=== PATIENT | female | born 1975 | race Caucasian/White ===

== ENCOUNTER 2021-09-20 09:43 | Emergency (ER) | payer BC, SELFPAY ==
[~2021-09-20] VITALS: Ht 162.6 cm; Wt 90.7 kg
[2021-09-20 10:05] VITALS: BP_SYST 136
--- NOTE | 2021-09-20 10:05 | NUR ---
Pt to remain in the er tent for evaluation. No er beds available. V/S stable.
--- NOTE | 2021-09-20 10:08 | NUR ---
Pt AAO and ambulatory reporting worsening Covid symptoms. Pt reports thart she was diagnosed 5 days ago. Pt denies pain and V/S are stable.
--- NOTE | 2021-09-20 10:10 | NUR ---
Dr. Astudillo to tent to evaluate pt status.
[2021-09-20] MEDS ORDERED: PHEN-649 PO (10:32)
[2021-09-20 10:50] VITALS: BP_SYST 136
--- NOTE | 2021-09-20 10:50 | NUR ---
Patient given written and verbal discharge instructions and verbalizes understanding. Dr. Baudilio HERNANDEZ MD discussed with patient the results and treatment provided. Patient in stable condition. ID arm band removed. Patient educated on pain management and to follow up with PMD. Pain Scale 0/10. Opportunity for questions provided and answered. Medication side effect fact sheet provided.
== END 2021-09-20 10:50 | disposition home or self-care (01) ==
LOC: SED 09:43
DX: U07.1 COVID-19 (principal); R06.02 Shortness of breath; Z88.1 Allergy status to other antibiotic agents; Z79.899 Other long term (current) drug therapy
CPT/HCPCS: 99281

== ENCOUNTER 2021-09-28 10:31 | Emergency (ER) | payer BC, SELFPAY ==
[~2021-09-28] VITALS: Ht 162.6 cm; Wt 70.3 kg
[~2021-09-28 10:31] MED LIST: PHEN-649 PO
[2021-09-28 11:35] VITALS: BP_SYST 128
--- NOTE | 2021-09-28 11:41 | NUR ---
triaged in tent
[2021-09-28 12:14] LABS: BASOPHILS % (AUTO) 0.2 % (0.0-2.0); EOSINOPHILS # (AUTO) 0.1 K/uL (0.0-0.4); EOSINOPHILS % (AUTO) 1.1 % (0.0-4.0); HEMATOCRIT 41.4 % (36-48); HEMOGLOBIN 13.7 g/dL (12.0-16.0); LYMPHOCYTES % (AUTO) 21.7 % (20.5-51.5); MEAN CORPUSCULAR HEMOGLOBIN 28 pg (27-31); MEAN CORPUSCULAR HGB CONC 33 % (32-36); MEAN CORPUSCULAR VOLUME 84 fL (79.0-98.0); MONOCYTES # (AUTO) 0.6 K/uL (0.0-1.0); MONOCYTES % (AUTO) 6.1 % (1.7-9.3); NEUTROPHILS # (AUTO) 6.6 K/uL (1.8-7.7); NEUTROPHILS % (AUTO) 70.9 % (40.0-70.0); PLATELET COUNT (AUTO) 285 K/uL (130-430); RED BLOOD CELL COUNT(AUTO) 4.93 MIL/uL (4.2-6.2); WHITE BLOOD COUNT (AUTO) 9.3 K/uL (4.8-10.8)
[2021-09-28 12:47] LABS: CALCIUM 8.8 mg/dL (8.4-11.0); CREATININE 0.73 mg/dL (0.55-1.30); POTASSIUM 4.1 mmol/L (3.5-5.1)
[2021-09-28 12:56] LABS: ALBUMIN 2.9 g/dL (3.4-4.8); TOTAL BILIRUBIN 0.3 mg/dL (0.0-1.0)
== END 2021-09-28 12:00 | disposition left against medical advice (07) ==
LOC: SED 10:31
DX: R07.89 Other chest pain (principal); Z79.899 Other long term (current) drug therapy; Z88.1 Allergy status to other antibiotic agents
CPT/HCPCS: 36415; 71045; 80053; 84484; 85025; 93005; 99285